=== PATIENT | female | born 1940 | race Caucasian/White ===

== ENCOUNTER → 2018-11-02 | Outpatient (CLI) | payer MEDICARE, BC ==
[~2018-11-02] MED LIST: ASPIRIN E.C. 8181 MG PO; CARDI-OMEGA1000 MG PO; EFFEXOR25 M1 PO; GLUCOPHAGE500 MG/TAB PO; METFORMIN1000 MG PO; POLYMYXIN B/TRIMETH OU; PRAVACHOL40 MG PO; THERATEARS 0.60.6 ML OP; VALTREX1 GM PO
== END ==
LOC: COL.LAB 17:43
DX: E11.59 Type 2 diabetes mellitus with other circulatory complications (principal)

== ENCOUNTER → 2019-02-08 | Outpatient (CLI) | payer MEDICARE, BC ==
[2019-02-11 12:34] LABS: CREATININE, serum 0.93 (0.52-1.25); POTASSIUM 3.5 mmol/L (3.4-5.0)
== END ==
LOC: ZCOL.LAB 18:16
PROVIDERS: Nurse Practitioner Family
DX: M10.9 Gout, unspecified (principal)

== ENCOUNTER → 2019-02-11 | Outpatient (CLI) | payer MEDICARE, BC ==
[2019-02-11 17:44] LABS: CALCIUM 9.2 mg/dL (8.4-10.2); CREATININE, serum 1.24 (0.52-1.25); POTASSIUM 4.6 mmol/L (3.4-5.0)
== END ==
LOC: COL.LAB 17:03
PROVIDERS: Internal Medicine
DX: M10.9 Gout, unspecified (principal)

== ENCOUNTER 2019-03-29 03:36 | Emergency (ER) | payer MEDICARE, BC ==
[~2019-03-29] VITALS: Ht 172.7 cm; Wt 81.8 kg
[2019-03-29 03:42] VITALS: BP 169/79; TEMP 97.3
[2019-03-29 04:30] VITALS: PULSE 89
== END 2019-03-29 04:30 | disposition home or self-care (01) ==
LOC: COL.ER 03:36
DX: S05.01XA Injury of conjunctiva and corneal abrasion without foreign body, right eye, initial encounter (principal); I25.10 Atherosclerotic heart disease of native coronary artery without angina pectoris; E11.9 Type 2 diabetes mellitus without complications; E78.5 Hyperlipidemia, unspecified; Z79.84 Long term (current) use of oral hypoglycemic drugs; Z79.82 Long term (current) use of aspirin; X58.XXXA Exposure to other specified factors, initial encounter

== ENCOUNTER → 2020-03-04 | Outpatient (CLI) | payer MEDICARE, BC | LOC: MC.RAD 13:15 | DX: Z12.31 Encounter for screening mammogram for malignant neoplasm of breast (principal) ==

== ENCOUNTER → 2021-08-17 | Outpatient (CLI) | payer MEDICARE, BC | LOC: COL.RAD 12:29 | DX: I65.23 Occlusion and stenosis of bilateral carotid arteries (principal); I25.10 Atherosclerotic heart disease of native coronary artery without angina pectoris | CPT/HCPCS: Q9967 ==

== ENCOUNTER 2024-05-02 10:40 | Inpatient (IN) | payer MEDICARE, BC ==
[~2024-05-02] VITALS: Ht 152.4 cm; Wt 72.2 kg
[2024-05-02] VITALS (7 sets, daily range): BP systolic 141–175; BP diastolic 85–105; PULSE 80–96; TEMP 98.3–99.9
[~2024-05-02 10:40] MED LIST changes: +DULCOLAX STOOL100 MG PO
[2024-05-02] MEDS ORDERED: Ondansetron 4 MG/2 ML VIAL IV ONE (11:00)
[2024-05-02] MEDS ORDERED: NS 500 ML IV ONE (11:00)
[2024-05-02 11:04] LABS: HEMATOCRIT 42.6 % (37.0-47.0); HEMOGLOBIN 14.4 g/dl (12.5-16.0); MEAN CELL VOLUME 91 fl (80.0-100.0); MEAN CORPUSCULAR HEMOGLOBIN 31 pg (27-31); MEAN CORPUSCULAR HGB CONC 34 g/dl (33.0-37.0); PLATELET COUNT 295 K/mm3 (130-400); RED BLOOD COUNT 4.69 M/mm3 (4.10-5.30); REDCELL DISTRIBUTION WIDTH-CV 13.5 % (11.5-14.5)
[2024-05-02 11:28] LABS: ALBUMIN 3.8 g/dL (3.4-4.8); BILIRUBIN,TOTAL 0.5 mg/dL (0.2-1.2); CALCIUM 9.6 mg/dL (8.4-10.2); CREATININE, serum 1.71 mg/dL (0.57-1.11); POTASSIUM 3.5 mEq/L (3.5-4.5); TOTAL PROTEIN 7.7 g/dl (6.2-8.1)
[2024-05-02 11:38] LABS: TROPONIN-I 0.039 ng/mL (0.00-0.033)
[2024-05-02 11:39] LABS: BAND 24 % (0-10); NEUTROPHILS 68 % (42.0-75.2)
[2024-05-02 11:40] LABS: PLATELET ESTIMATE NORMAL (NORMAL)
[2024-05-02 11:41] LABS: LYMPHOCYTE 2 % (20.0-51.0)
[2024-05-02] MEDS ORDERED: Morphine 4 MG/ML VIAL IV ONE (12:30)
[2024-05-02] MEDS ORDERED: ACTOS30 MG PO (12:38)
[2024-05-02] MEDS ORDERED: MEVACOR10 MG PO (12:39)
[2024-05-02] MEDS ORDERED: DIABETA 2.5MG2.5 MG PO (12:39)
[2024-05-02] MEDS ORDERED: CELEXA 20MG20 MG/TAB PO (12:40)
[2024-05-02] MEDS ORDERED: *Potassium Replacement Protocol MC SCH ×2 (14:15→22:45)
[2024-05-02] MEDS ORDERED: Ondansetron 4 MG/2 ML VIAL IV PRN (14:15)
[2024-05-02] MEDS ORDERED: Dextrose 50% Water 25 GM/50 ML SYRINGE IV PRN (14:15)
[2024-05-02] MEDS ORDERED: Glucagon 1 MG VIAL IM PRN (14:15)
[2024-05-02] MEDS ORDERED: Dextrose (Glucose) 15 GM (4 x 3.75 GM) Chewable TABLET PACK PO PRN (14:15)
[2024-05-02] MEDS ORDERED: NS 1,000 ML IV SCH (14:15)
[2024-05-02] MEDS ORDERED: Acetaminophen 325 MG TAB PO PRN (14:15)
--- NOTE | 2024-05-02 14:45 | NUR ---
PATIENT ARRIVED TO ROOM FROM THE ED WITH ED STAFF AND VIA BED. PATIENT IS ON FALL PRECAUTIONS AND BED ALARM IS ON. PATIENT SETTLED INTO ROOM AND ORIENTED TO SURROUNDINGS. PERIPHERAL IV PLACED IN ED INTO LAC. PATIENT IS A&O X2. ABLE TO ANSWER QUESTIONS FOR HER. NO FURTHER NEEDS AT THIS TIME. CALL LIGHT PLACED WITHIN REACH.
[2024-05-02] MEDS ORDERED: Morphine 4 MG/ML VIAL IV PRN (15:45)
[2024-05-02] MEDS ORDERED: amLODIPine 10 MG TAB PO ONE (15:45)
[2024-05-02] MEDS ORDERED: Insulin Lispro (HumaLOG) SQ SCH (18:00)
--- NOTE | 2024-05-02 19:40 | NUR ---
ALERTED BY PCT, PATIENT O2 SAT 84% ON 2L NC. TITRATED O2 UP TO 5L AND CALL. LUNG SOUNDS CLEAR, MENTATION DIFFICULT TO ASSESS PT HAS ADVANCED DEMENTIA. CALL PLACED TO RT. RT BEDSIDE TO ASSESS-O2 NOW 94% ON 5L. WILL LEAVE O2 AT 5L.
--- NOTE | 2024-05-02 20:40 | NUR ---
CALL PLACED TO HOSPITALIST KATHY SHOOK. UPDATED MD ON PATIENT'S RESPIRATORY STATUS-O2 TITRATED TO 5L. REQUESTED ORDERS FOR UA-UA ORDERS PLACED.
--- NOTE | 2024-05-02 20:45 | NUR ---
UPON SHIFT ASSESSMENT, LUZ MARIA EXHIBITED EXTREME FATIGUE AND TOOK A MAX 2 ASSISST TO GET TO BEDSIDE COMODE. SHE HAS ADVANCED DEMETIA AND IS VERY SLOW TO RESPOND OR WON'T RESPOND AT ALL. NS RUNNING AT 75 ML PER HOUR IN LT AC. 3L O2 NASAL CANNULA. SHE HAS EATEN ONLY A COUPLE STRAWBERRIES, THE REST OF HER DINNER TRAY REMAINS UNTOUCHED. PATIENT TOOK PO MEDICATIONS WITH NO COMPLICATIONS, HOWEVER, PATIENT HAS TO BE REMINDED AND HELPED WITH ORAL REHYDRATION.
--- NOTE | 2024-05-02 22:40 | NUR ---
UNABLE TO OBTAIN CLEAN CATCH UA FROM PATIENT. STRAIGHT CATH PERFORM AND 300 ML URINE DRAINED. SPECIMEN SENT TO LAB.
[2024-05-02] MEDS ORDERED: Potassium Bicarbonate/Citrate 20 MEQ Effervescent TAB PO ONE (22:45)
[2024-05-03] VITALS (12 sets, daily range): BP systolic 119–181; BP diastolic 77–98; PULSE 71–93; TEMP 97.8–99.5
[2024-05-03] MEDS ORDERED: Heparin 5,000 UNITS/ML 1 ML VIAL SQ SCH
--- NOTE | 2024-05-03 00:07 | NUR ---
CALL PLACED TO LAB INQUIRING ABOUT UA RESULTS. ICE CREAM MAN STATED SHOULD RESULT IN 15 MINS.
--- NOTE | 2024-05-03 00:07 | NUR ---
CALL PLACED TO RT. PATIENT SATING AT 89% 5L NC. RT TO COME AND ASSESS. PATIENT LOW GRADE FEVER-PRN TYLENOL ADMINISTERED.
--- NOTE | 2024-05-03 00:08 | NUR ---
RT PLACED PATIENT ON 8L OXYMASK. PATIENT CURRENTLY SATING AT 93%.NO INCREASED WOB NOTED.
[2024-05-03 00:20] LABS: COLLECTION METHOD CLEAN CATCH
[2024-05-03 00:24] LABS: URINE APPEARANCE CLEAR (CLEAR/HAZY); URINE BLOOD TRACE-INTACT (NEGATIVE); URINE COLOR YELLOW (YELLOW); URINE GLUCOSE TRACE (NEGATIVE); URINE KETONE TRACE (NEGATIVE); URINE NITRATE NEGATIVE (NEGATIVE); URINE PROTEIN(semi-quant) 3+ (NEGATIVE); URINE UROBILINOGEN 0.2 E.U/dL (0.2-1.0)
[2024-05-03] MEDS ORDERED: cefTRIAXone 1 G in Water For Injection,Sterile 10 ML IV SCH (00:30)
--- NOTE | 2024-05-03 00:50 | NUR ---
IVF HELD PER RAYSHAWN FROM
--- NOTE | 2024-05-03 07:45 | NUR ---
PATIENT AWAKE AND WANTING TO GET UT OF BED. PATIENT CONFUSED AT THIS TIME. PATIENT OXYMASK WAS PLACED BACK ON AND PATIENT WAS REMINDED TO KEEP IT ON. pATIENT IS ON 8L O2/OXYMASK. PATIENT NPO AT THIS TIME. PATIENT REPOSITIONED IN BED. CALL LIGHT WITHIN REACH. BED RAILS X3 INPLACE. BED AT LOWEST POSITION. BD ALARM ON.
[2024-05-03] MEDS ORDERED: Citalopram 20 MG TAB PO SCH (09:00)
[2024-05-03] MEDS ORDERED: glyBURIDE 2.5 MG TAB PO SCH (09:00)
--- NOTE | 2024-05-03 09:53 | NUR ---
rebar worker met with pt to discuss discharge planning, but notes pt has advanced dementia at baseline. , Kristian [phone] was present and confirmed they live together in [place]. He reports pt sees Dr. Pulliam for PCP needs and obtains medications from [facility] with no difficulties. He states she is independent with ADLS and uses a cane for DME. He states her DPOA-HC is "taken care of" with their commercial attorney. SW tried to verify if he was the only one listed. He just nodded his head and did not provide further details. RANJAN advised PT/OT are ordered and will work with her today to assess for any reccs like HH or rehab. states he has worked with [facility] and can have someone come in if needed. PT/OT pending Discharge Plan: home with [facility], BRITTANY
[2024-05-03 10:15] LABS: MEAN CELL VOLUME 90 fl (80.0-100.0); MEAN CORPUSCULAR HEMOGLOBIN 30 pg (27-31); MEAN CORPUSCULAR HGB CONC 33 g/dl (33.0-37.0); MEAN PLATELET VOLUME 10.3 fl (7.4-10.4); PLATELET COUNT 219 K/mm3 (130-400); RED BLOOD COUNT 4.34 M/mm3 (4.10-5.30); REDCELL DISTRIBUTION WIDTH-CV 13.5 % (11.5-14.5)
[2024-05-03 10:28] LABS: ALBUMIN 3.2 g/dL (3.4-4.8); CREATININE, serum 2.1 mg/dL (0.57-1.11); MAGNESIUM 1.9 mg/dL (1.6-2.6); PHOSPHOROUS 3.7 mg/dL (2.3-4.7)
[2024-05-03 12:04] LABS: BAND 9 % (0-10); LYMPHOCYTE 4 % (20.0-51.0); NEUTROPHILS 81 % (42.0-75.2); PLATELET ESTIMATE NORMAL (NORMAL)
--- NOTE | 2024-05-03 15:10 | NUR ---
SW was approached by pt's and informed he would like [facility]. RANJAN advised she will set this up once pt is seen by therapy, but would note his request. He reports to have talked with Crystal at [facility].
[2024-05-03] MEDS ORDERED: hydrALAZINE 10 MG TAB PO PRN (16:00)
[2024-05-03] MEDS ORDERED: [UNRECOGNIZED DRUG - REMARK] PO SCH (21:00)
[2024-05-03] MEDS ORDERED: Atorvastatin 10 MG TAB PO SCH (21:00)
[2024-05-04] VITALS (13 sets, daily range): BP systolic 158–211; BP diastolic 83–112; PULSE 84–106; TEMP 97.9–98.9
--- NOTE | 2024-05-04 01:40 | NUR ---
NURSING SHIFT ASSESSMENT COMPLETED. THE PATIENT WAS ALERT AND ORIENTED TO SELF AND PLACE BUT NOT TIME OR SITUATION. THE PATIENT SET THE BED ALARM OFF TRYING TO GET OUT OF BED TO VOID. THE PATIENT WAS ASSISTED TO THE BSC WITH SBA AND A WALKER. THE PATIENT HAD A LARGE SOFT BM AND VOIDED BOTH WITHOUT DIFFICULTY. THE PATIENT WAS ABLE TO FOLLOW COMMANDS APPROPRIATELY. THE PATIENT DENIED PAIN. FRESH WATER WAS PROVIDED. THE PATIENT WAS EDUCATED TO THE REASONS FOR HER BEING IN THE HOSPITAL AND SHE VERBALIZED UNDERSTANDING. NO OTHER NEEDS AT THIS TIME. THE BED IS IN THE LOW POSITION. THE BED ALARM IS ON. THE CALL LIGHT AND PERSONAL BELONGINGS ARE WITHIN REACH.
[2024-05-04 06:41] LABS: BASO % 0.3 % (0.0-2.0); EOS % 0.3 % (0.0-4.0); GRAN # 6.9 K/mm3 (1.4-6.5); GRAN % 87.9 % (42.2-75.2); HEMATOCRIT 39.3 % (37.0-47.0); HEMOGLOBIN 13.7 g/dl (12.5-16.0); LYMPH # 0.3 K/mm3 (1.2-3.4); LYMPH % 4.1 % (20.0-51.0); MEAN CELL VOLUME 88 fl (80.0-100.0); MEAN CORPUSCULAR HEMOGLOBIN 31 pg (27-31); MEAN CORPUSCULAR HGB CONC 35 g/dl (33.0-37.0); MEAN PLATELET VOLUME 9.9 fl (7.4-10.4); MONO # 0.5 K/mm3 (0.1-0.6); MONO % 6.9 % (1.7-9.3); PLATELET COUNT 205 K/mm3 (130-400); RED BLOOD COUNT 4.46 M/mm3 (4.10-5.30); REDCELL DISTRIBUTION WIDTH-CV 13.1 % (11.5-14.5)
[2024-05-04 07:03] LABS: ALBUMIN 3.1 g/dL (3.4-4.8); CALCIUM 8.9 mg/dL (8.4-10.2); CREATININE, serum 1.87 mg/dL (0.57-1.11); MAGNESIUM 1.7 mg/dL (1.6-2.6); PHOSPHOROUS 3.2 mg/dL (2.3-4.7); POTASSIUM 3.3 mEq/L (3.5-4.5)
[2024-05-04] MEDS ORDERED: Insulin Lispro (HumaLOG) SQ SCH (08:00)
--- NOTE | 2024-05-04 08:45 | NUR ---
PT LAYING IN BED UPON ENTERING, AT BEDSIDE. ASSESSMENT DONE, MEDS GIVEN PER ORDER. PT ON 6L OXYMASK, CHANGED TO NASAL CANNULA FOR MEAL. PT DENIES PAIN. FLUIDS RUNNING IN LEFT FOREARM PER ORDER. PT DENIES NEEDS. BED IN LOWEST POSITION, CALL LIGHT IN REACH, BED ALARM ON
--- NOTE | 2024-05-04 10:58 | NUR ---
Data: Spiritual care visit attempted during Blind Teacher rounds. Patient was sleeping. Blind Teacher did have very short conversation with Patient's near elevator. Assessment: None at this time. Patient was sleeping. Plan of Care: Chaplains will remain available as needed/requested while Patient is admitted to this hospital.
[2024-05-04] MEDS ORDERED: Potassium Bicarbonate/Citrate 20 MEQ Effervescent TAB PO ONE (11:15)
[2024-05-04] MEDS ORDERED: amLODIPine 10 MG TAB PO SCH (12:56)
--- NOTE | 2024-05-04 12:56 | NUR ---
THIS NURSE CALLED DR MENCHACA AND NOTIFIED OF PTS BP AFTER PRN HYDRALAZINE 167/83
--- NOTE | 2024-05-04 15:18 | NUR ---
UPPER ARM BPS 200S/120S PER PCT, RIGHT FOREARM BP 179/96. DR MENCHACA CALLED AND UPDATED
[2024-05-04] MEDS ORDERED: hydrALAZINE 25 MG TAB PO PRN (15:30)
--- NOTE | 2024-05-04 16:14 | NUR ---
FLUIDS DISCONTINUED PER ORDER
--- NOTE | 2024-05-04 19:52 | NUR ---
1939 TELE MONITOR CALLED AND REPORTED THAT THIS PATIENT HAD A 5 BEAT RUN OF V-TACH. YOLANDE SHANNON APRN NOTIFIED AT 1951. NO NEW ORDERS RECEIVED.
[2024-05-05] VITALS (12 sets, daily range): BP systolic 124–171; BP diastolic 75–109; PULSE 79–88; TEMP 97.6–98.3
--- NOTE | 2024-05-05 02:23 | NUR ---
NURSING SHIFT ASSESSMENT COMPLETED. THE PATIENT WAS ALERT AND ORIENTED TO SELF AND PLACE BUT NOT TIME. THE PATIENT WAS ABLE TO USE THE CALL LIGHT TO [facility] STAFF TO USE THE BATHROOM. THE PATIENT IS AMBULATING WITH A STEADY GAIT WITH A WALKER TO THE BATHROOM WITHOUT DIFFICULTY AND TOLERATING THE ACTIVITY WELL. THE PATIENT DENIED NEEDS OR DISCOMFORT. FRESH ICE WATER WAS PROVIDED. THE BED IS IN THE LOW POSITION. CALL LIGHT AND PERSONAL BELONGINGS WITHIN REACH. BED ALARM ON. THE PLAN OF CARE AND EVENING MEDICATIONS REVIEWED. FUTHER TEACHING NEEDED.
[2024-05-05 07:21] LABS: BASO % 0.5 % (0.0-2.0); EOS # 0.1 K/mm3 (0.0-0.7); EOS % 0.9 % (0.0-4.0); GRAN # 4.8 K/mm3 (1.4-6.5); GRAN % 75.8 % (42.2-75.2); HEMATOCRIT 37.3 % (37.0-47.0); HEMOGLOBIN 13.3 g/dl (12.5-16.0); LYMPH # 0.6 K/mm3 (1.2-3.4); LYMPH % 9.5 % (20.0-51.0); MEAN CELL VOLUME 86 fl (80.0-100.0); MEAN CORPUSCULAR HEMOGLOBIN 31 pg (27-31); MEAN CORPUSCULAR HGB CONC 36 g/dl (33.0-37.0); MEAN PLATELET VOLUME 10.6 fl (7.4-10.4); MONO # 0.8 K/mm3 (0.1-0.6); PLATELET COUNT 190 K/mm3 (130-400); RED BLOOD COUNT 4.35 M/mm3 (4.10-5.30); REDCELL DISTRIBUTION WIDTH-CV 12.6 % (11.5-14.5)
[2024-05-05 07:22] LABS: ALBUMIN 2.8 g/dL (3.4-4.8); CALCIUM 8.9 mg/dL (8.4-10.2); CREATININE, serum 1.77 mg/dL (0.57-1.11); MAGNESIUM 1.9 mg/dL (1.6-2.6); PHOSPHOROUS 2.8 mg/dL (2.3-4.7)
[2024-05-05] MEDS ORDERED: Potassium Bicarbonate/Citrate 20 MEQ Effervescent TAB PO ONE (08:00)
--- NOTE | 2024-05-05 08:40 | NUR ---
PT LAYING IN BED UPON ENTERING, AT BEDSIDE. ASSESSMENT DONE, MEDS GIVEN PER ORDER. INT TO LEFT FOREARM PATENT. PT DENIES PAIN. PT ON 5L NASAL CANNULA. PT DENIES NEEDS. BED IN LOWEST POSITION, CALL LIGHT IN REACH, BED ALARM ON
--- NOTE | 2024-05-05 14:18 | NUR ---
Updated clinicals faxed to [facility] ECKERT.
[2024-05-05] MEDS ORDERED: hydrALAZINE 25 MG TAB PO SCH (17:00)
[2024-05-06] VITALS (13 sets, daily range): BP systolic 125–165; BP diastolic 73–95; PULSE 78–95; TEMP 97.6–98.2
[2024-05-06 07:07] LABS: BASO % 0.5 % (0.0-2.0); EOS # 0.2 K/mm3 (0.0-0.7); EOS % 2.9 % (0.0-4.0); GRAN # 3.9 K/mm3 (1.4-6.5); GRAN % 69.6 % (42.2-75.2); HEMATOCRIT 38.4 % (37.0-47.0); HEMOGLOBIN 13.4 g/dl (12.5-16.0); LYMPH # 0.8 K/mm3 (1.2-3.4); LYMPH % 14.8 % (20.0-51.0); MEAN CELL VOLUME 86 fl (80.0-100.0); MEAN CORPUSCULAR HEMOGLOBIN 30 pg (27-31); MEAN CORPUSCULAR HGB CONC 35 g/dl (33.0-37.0); MEAN PLATELET VOLUME 10.9 fl (7.4-10.4); MONO # 0.7 K/mm3 (0.1-0.6); MONO % 11.7 % (1.7-9.3); PLATELET COUNT 206 K/mm3 (130-400); RED BLOOD COUNT 4.45 M/mm3 (4.10-5.30); REDCELL DISTRIBUTION WIDTH-CV 12.6 % (11.5-14.5)
[2024-05-06 07:18] LABS: ALBUMIN 2.7 g/dL (3.4-4.8); CALCIUM 9.2 mg/dL (8.4-10.2); CREATININE, serum 1.83 mg/dL (0.57-1.11); PHOSPHOROUS 3.1 mg/dL (2.3-4.7); POTASSIUM 3.1 mEq/L (3.5-4.5)
--- NOTE | 2024-05-06 07:23 | NUR ---
Bedside report received from NELIDA Price. Pt resting in bed with no complaints. Call light within reach.
[2024-05-06] MEDS ORDERED: Potassium Bicarbonate/Citrate 20 MEQ Effervescent TAB PO ONE (09:00)
--- NOTE | 2024-05-06 10:12 | NUR ---
Pt awake in room visiting with at bedside. Shift assessment completed. VSS. INT to LFA patent, flushes with no complications. Pt denies pain at this time rating 0/10. NPO status in place per cardiology. Education provided to pt and pt spouse abotu NPO status at this time. Pt and spouse verbalized understanding of NPO status. Pt has no complaints at this time. Call light within reach and fall precautions in place.
[2024-05-06] MEDS ORDERED: NORVASC 10MG10 MG PO (12:24)
[2024-05-06] MEDS ORDERED: APRESOLINE 25MG25 MG PO (12:24)
[2024-05-06] MEDS ORDERED: PRINIVIL2.5 MG PO (12:43)
[2024-05-06] MEDS ORDERED: Regadenoson 0.08 MG/ML 5 ML SYRINGE IV SCH (12:43)
--- NOTE | 2024-05-06 13:28 | NUR ---
Professional Housing Consultant met with patient's , Kristian to review IM. Kristian verbalized understanding and provided signature. SW placed form in chart and provided copy to patient. RANJAN sent discharge orders to Darius at [facility] via secure email. Discharge Plan: Home with [facility]
--- NOTE | 2024-05-06 14:49 | NUR ---
Discharge instructions provided to pt and pt spouse. Pt and spouse verbalized understanding of discahrge paperwork. INT to Lt forearm discontinued with tip intact, pt tolerated well with no complaints. Telemetry discontinued. Pt is leaving facility with spouse back to home.
== END 2024-05-06 14:50 | disposition home or self-care (01) | DRG 682 ==
LOC: COL.ER 10:40 → MEDICAL 12:53
PROVIDERS: Internal Medicine; Personal Emergency Response Attendant; ADMIT Internal Medicine
DX: N17.9 Acute kidney failure, unspecified (principal); J96.01 Acute respiratory failure with hypoxia; F03.90 Unspecified dementia, unspecified severity, without behavioral disturbance, psychotic disturbance, mood disturbance, and anxiety; I34.0 Nonrheumatic mitral (valve) insufficiency; I25.10 Atherosclerotic heart disease of native coronary artery without angina pectoris; E78.5 Hyperlipidemia, unspecified; R79.89 Other specified abnormal findings of blood chemistry; I12.9 Hypertensive chronic kidney disease with stage 1 through stage 4 chronic kidney disease, or unspecified chronic kidney disease; E11.22 Type 2 diabetes mellitus with diabetic chronic kidney disease; N18.9 Chronic kidney disease, unspecified; Z90.49 Acquired absence of other specified parts of digestive tract; Z95.5 Presence of coronary angioplasty implant and graft; Z88.7 Allergy status to serum and vaccine; Z79.82 Long term (current) use of aspirin; Z79.899 Other long term (current) drug therapy; Z87.891 Personal history of nicotine dependence
CPT/HCPCS: A9284; A9500-JZ; G0378; J0696; J1644; J1815; J2270; J2405; J2785; J7030; J7040